=== PATIENT | female | born 1970 | race Caucasian/White ===

== ENCOUNTER 2019-09-16 00:36 | Inpatient (IN) | payer BC ==
[2019-09-15 23:55] VITALS: BP 134/81
[~2019-09-16] VITALS: Ht 157.5 cm; Wt 65.5 kg
[2019-09-16 00:23] VITALS: BP 134/81
[2019-09-16] MEDS: fentaNYL PF VIAL 100 MCG/2 ML VIAL IVP PRN ×3 (01:06→07:23)
[2019-09-16] MEDS: ONDANSETRON PF 4 MG/2 ML VIAL. IV PRN ×2 (01:06→07:25)
[2019-09-16] MEDS: IV NORMAL SALINE 1000ML BAG 1,000 ML IV SCH ×2 (01:07→11:00)
--- NOTE | 2019-09-16 01:15 | NUR ---
ADMIT NOTE: The patient, FEI REDDY, 49 y/o, F admitted by FELIBERTO LAMB MD, was given written information regarding hospital policies, unit procedures and contact persons. Patient arrived via gurney and escorted by EMS to unit. Patient afebrile, A&O, with moderate c/o pain upon admission. Patient orientated to room, admit packet reviewed and plan of care discussed, home medications and allergies verified and personal belongings left in room with patient. Patient in bed, call light within reach and no other needs voiced at this time.
[2019-09-16] MEDS ORDERED: DIPH25CA58 PO (02:35)
[2019-09-16 02:53] VITALS: BP 113/72
[2019-09-16] MEDS ORDERED: BUPIVACAINE-EPI 0.5%-1:200000 MPF 30 ML VIAL. ONE (07:28)
[2019-09-16] MEDS ORDERED: IV RINGERS,LACTATED 1000ML 1,000 ML IV SCH (07:32)
[2019-09-16 07:39] LABS: BASO % 0 % (0-3); EOS % 0 % (0-3); HEMATOCRIT 37.3 % (36.0-47.0); HEMOGLOBIN 12.4 g/dL (12.0-15.5); LYMPH # 0.6 x10^3/uL (1.0-4.8); LYMPH % 4 % (24-48); MEAN CORPUSCULAR HEMOGLOBIN 29 pg (25-35); MEAN CORPUSCULAR HGB CONC 33 g/dL (31-37); MEAN CORPUSCULAR VOLUME 88 fL (79-100); MONO # 1.1 x10^3/uL (0.0-1.1); MONO % 7 % (0-9); NEUT # 14.7 x10^3/uL (1.8-7.7); NEUT % 89 % (31-73); PLATELET COUNT 296 x10^3/uL (140-400); RED BLOOD COUNT 4.26 x10^6/uL (3.50-5.40); RED CELL DISTRIBUTION WIDTH 13.8 % (11.5-14.5); WHITE BLOOD COUNT 16.5 x10^3/uL (4.0-11.0)
[2019-09-16] MEDS ORDERED: SCOPOLAMINE 1.5MG PATCH. TD ONE ×2 (07:42→09:00)
[2019-09-16] MEDS ORDERED: PROCHLORPERAZINE 10 MG/2 ML VIAL. IV PRN (07:45)
[2019-09-16] MEDS ORDERED: HYDROmorphone 2 MG/ML VIAL IV PRN ×2 (07:45→10:15)
[2019-09-16] MEDS ORDERED: MORPHINE SULFATE 2 MG/ML VIAL. IV PRN (07:45)
[2019-09-16] MEDS ORDERED: fentaNYL PF VIAL 100 MCG/2 ML VIAL IV PRN ×2 (07:45)
[2019-09-16] MEDS ORDERED: ONDANSETRON PF 4 MG/2 ML VIAL. IV PRN (07:45)
[2019-09-16] MEDS ORDERED: SEVOFLURANE 61 TO 120 MINUTES. IH ONE ×2 (07:46→09:23)
[2019-09-16] MEDS ORDERED: ROCURONIUM 50 MG/5 ML VIAL. ONE (07:46)
[2019-09-16] MEDS ORDERED: PROPOFOL 20 ML IV ONE (07:47)
[2019-09-16] MEDS ORDERED: LIDOCAINE 2% PF 5 ML VIAL. ONE (07:47)
[2019-09-16] MEDS ORDERED: BACITRACIN 50,000 UNIT in IV NORMAL SALINE 1000ML BAG 1,000 ML IRR ONE (08:00)
--- NOTE | 2019-09-16 08:16 | PDOC2 ---
CONSULT Date of Consult Date of Consult DATE: 09/16/19 TIME: 08:10 Reason for Consult Reason for Consult: acute appendicitis Referring Physician Referring Physician: Dr Yousif Identification/Chief Complaint Chief Complaint RLQ pain Source Source: Chart review, Patient History of Present Illness Reason for Visit: Ms Bradshaw is a 49 yo female with acute onset of RLQ pain. Seen by her PCP, sent to the [facility] ED where a CT suggested an acute appendicitis. Past Medical History Cardiovascular: No pertinent hx Pulmonary: No pertinent hx Renal/: No pertinent hx Past Surgical History Past Surgical History: Hysterectomy Family History Family History: No Significant Social History No ALCOHOL: none Current Medications Current Medications Current Medications Sodium Chloride 1,000 ml @ 100 mls/hr Q10H IV Last administered on 09/16/19at 01:07; Start 09/16/19 at 01:00 Ondansetron HCl (Zofran) 4 mg PRN Q4HRS PRN IV NAUSEA/VOMITING Last administered on 09/16/19at 07:25; Start 09/16/19 at 01:00 Fentanyl Citrate (Fentanyl 2ml Vial) 50 mcg PRN Q3HRS PRN IVP PAIN Last administered on 09/16/19at 07:23; Start 09/16/19 at 01:00 Cefazolin Sodium/ Dextrose 50 ml @ 100 mls/hr 1X ONCE IV ; Start 09/16/19 at 08:00; Stop 09/16/19 at 08:29 Metronidazole 100 ml @ 100 mls/hr 1X ONCE IV ; Start 09/16/19 at 08:00; Stop 09/16/19 at 08:59 Bupivacaine HCl/ Epinephrine Bitart (Sensorcain-Epi 0.5%-1:080323 Mpf) 30 ml STK-MED ONCE .ROUTE ; Start 09/16/19 at 07:28; Stop 09/16/19 at 07:28; Status DC Ondansetron HCl (Zofran) 4 mg PRN Q6HRS PRN IV NAUSEA/VOMITING; Start 09/16/19 at 07:45; Stop 09/16/19 at 20:00 Fentanyl Citrate (Fentanyl 2ml Vial) 25 mcg PRN Q5MIN PRN IV MILD PAIN 1-3; Start 09/16/19 at 07:45; Stop 09/16/19 at 20:00 Fentanyl Citrate (Fentanyl 2ml Vial) 50 mcg PRN Q5MIN PRN IV MODERATE TO SEVERE PAIN; Start 09/16/19 at 07:45; Stop 09/16/19 at 20:00 Morphine Sulfate (Morphine Sulfate) 1 mg PRN Q10MIN PRN IV SEVERE PAIN 7-10; Start 09/16/19 at 07:45; Stop 09/16/19 at 20:00 Ringer's Solution 1,000 ml @ 30 mls/hr Q24H IV ; Start 09/16/19 at 07:32; Stop 09/16/19 at 19:31 Hydromorphone HCl (Dilaudid) 0.5 mg PRN Q10MIN PRN IV SEV PAIN, Second choice; Start 09/16/19 at 07:45; Stop 09/17/19 at 07:44 Prochlorperazine Edisylate (Compazine) 5 mg PACU PRN PRN IV NAUSEA, MRX1; Start 09/16/19 at 07:45; Stop 09/16/19 at 20:00 Scopolamine (Transderm-Scop) 1 patch STK-MED ONCE TD ; Start 09/16/19 at 07:42; Stop 09/16/19 at 07:42; Status DC Scopolamine (Transderm-Scop) 1 patch Q3DAYS TD Last administered on 09/16/19at 07:45; Start 09/16/19 at 09:00; Stop 09/16/19 at 07:48; Status DC Rocuronium [place] (Zemuron) 50 mg STK-MED ONCE .ROUTE ; Start 09/16/19 at 07:46; Stop 09/16/19 at 07:46; Status DC Sevoflurane (Ultane) 60 ml STK-MED ONCE IH ; Start 09/16/19 at 07:46; Stop 09/16/19 at 07:47; Status DC Propofol 20 ml @ As Directed STK-MED ONCE IV ; Start 09/16/19 at 07:47; Stop 09/16/19 at 07:47; Status DC Lidocaine HCl (Lidocaine Pf 2% Vial) 5 ml STK-MED ONCE .ROUTE ; Start 09/16/19 at 07:47; Stop 09/16/19 at 07:47; Status DC Scopolamine (Transderm-Scop) 1 patch 1X ONCE TD ; Start 09/16/19 at 09:00; Stop 09/16/19 at 09:01 Bacitracin 84445 unit/Sodium Chloride 1,000 ml @ 1,000 mls/hr 1X ONCE IRR ; Start 09/16/19 at 08:00; Stop 09/16/19 at 08:59 Active Scripts Active Reported Benadryl (Diphenhydramine Hcl) 25 Mg Capsule 1 Cap PO QHS 30 Days Allergies Allergies: Coded Allergies: No Known Allergies (Verified Allergy, Unknown, 09/16/19) ROS Gastrointestinal: Yes Nausea, Yes Abdominal Pain Physical Exam General: Alert, Oriented X3, No acute distress HEENT: Atraumatic Lungs: Normal air movement Heart: Regular rate Abdomen: Soft Vitals VITALS Vital Signs Date Time Temp Pulse Resp B/P (MAP) Pulse Ox O2 Delivery O2 Flow Rate FiO2 09/16/19 07:46 99.4 93 15 124/70 97 Room Air 99.4 Labs Labs Laboratory Tests Test 09/16/19 06:25 White Blood Count 16.5 x10^3/uL (4.0-11.0) Red Blood Count 4.26 x10^6/uL (3.50-5.40) Hemoglobin 12.4 g/dL (12.0-15.5) Hematocrit 37.3 % (36.0-47.0) Mean Corpuscular Volume 88 fL (79-100) Mean Corpuscular Hemoglobin 29 pg (25-35) Mean Corpuscular Hemoglobin Concent 33 g/dL (31-37) Red Cell Distribution Width 13.8 % (11.5-14.5) Platelet Count 296 x10^3/uL (140-400) Neutrophils (%) (Auto) 89 % (31-73) Lymphocytes (%) (Auto) 4 % (24-48) Monocytes (%) (Auto) 7 % (0-9) Eosinophils (%) (Auto) 0 % (0-3) Basophils (%) (Auto) 0 % (0-3) Neutrophils # (Auto) 14.7 x10^3/uL (1.8-7.7) Lymphocytes # (Auto) 0.6 x10^3/uL (1.0-4.8) Monocytes # (Auto) 1.1 x10^3/uL (0.0-1.1) Eosinophils # (Auto) 0.0 x10^3/uL (0.0-0.7) Basophils # (Auto) 0.0 x10^3/uL (0.0-0.2) Laboratory Tests Test 09/16/19 06:25 White Blood Count 16.5 x10^3/uL (4.0-11.0) Red Blood Count 4.26 x10^6/uL (3.50-5.40) Hemoglobin 12.4 g/dL (12.0-15.5) Hematocrit 37.3 % (36.0-47.0) Mean Corpuscular Volume 88 fL (79-100) Mean Corpuscular Hemoglobin 29 pg (25-35) Mean Corpuscular Hemoglobin Concent 33 g/dL (31-37) Red Cell Distribution Width 13.8 % (11.5-14.5) Platelet Count 296 x10^3/uL (140-400) Neutrophils (%) (Auto) 89 % (31-73) Lymphocytes (%) (Auto) 4 % (24-48) Monocytes (%) (Auto) 7 % (0-9) Eosinophils (%) (Auto) 0 % (0-3) Basophils (%) (Auto) 0 % (0-3) Neutrophils # (Auto) 14.7 x10^3/uL (1.8-7.7) Lymphocytes # (Auto) 0.6 x10^3/uL (1.0-4.8) Monocytes # (Auto) 1.1 x10^3/uL (0.0-1.1) Eosinophils # (Auto) 0.0 x10^3/uL (0.0-0.7) Basophils # (Auto) 0.0 x10^3/uL (0.0-0.2) Images Images CT scan done at [facility] ED is reviewed Assessment/Plan Assessment/Plan acute appendicitis explained risks of laprascopic appendectomy including but not limited to bleeding, infection, injury to surrounding structures, non acute appendix (i.e.m esenteric adenitis, gastroenteritis), she will proceed Thanks for consult GARTH PACHECO MD Sep 16, 2019 08:16
[2019-09-16 08:19] LABS: ALBUMIN 3.3 g/dL (3.4-5.0); ALBUMIN/GLOBULIN RATIO 0.9 (1.0-1.7); CALCIUM 8.6 mg/dL (8.5-10.1); CREATININE 0.7 mg/dL (0.6-1.0); GFR 88.2; POTASSIUM 3.2 mmol/L (3.5-5.1); TOTAL BILIRUBIN 0.5 mg/dL (0.2-1.0); TOTAL PROTEIN 6.8 g/dL (6.4-8.2)
[2019-09-16] MEDS ORDERED: SUCCINYLCHOLINE 200 MG/10 ML VIAL. ONE (08:24)
[2019-09-16] MEDS ORDERED: ONDANSETRON PF 4 MG/2 ML VIAL. ONE (08:48)
[2019-09-16] MEDS ORDERED: DEXAMETHASONE SOD PHOS 4 MG/ML VIAL ONE (08:48)
[2019-09-16] MEDS ORDERED: FAMOTIDINE 20 MG/2 ML VIAL ONE (08:48)
[2019-09-16] MEDS ORDERED: KETOROLAC 30 MG/ML VIAL. ONE (08:49)
[2019-09-16] MEDS ORDERED: NEOSTIGMINE METHYLSULFATE 5 MG/5 ML SYRINGE. ONE (08:49)
[2019-09-16] MEDS ORDERED: GLYCOPYRROLATE 1 MG/5 ML VIAL. ONE (08:49)
[2019-09-16] MEDS ORDERED: SCOPOLAMINE 1.5MG PATCH. TD SCH (09:00)
[2019-09-16] MEDS ORDERED: EPINEPHrine 1 MG/ML VIAL ONE (09:06)
[2019-09-16] MEDS ORDERED: BUPIVACAINE MPF 0.5% 30 ML VIAL. ONE (09:06)
--- NOTE | 2019-09-16 09:47 | NUR ---
SW following. Discussed with RN, pt from home, having an appy today. RN advised no SW needs at this time. SW will continue to follow.
[2019-09-16] MEDS ORDERED: fentaNYL PF VIAL 100 MCG/2 ML VIAL ONE (10:01)
[2019-09-16] MEDS ORDERED: IV NORMAL SALINE 1000ML BAG 1,000 ML IV SCH (10:01)
[2019-09-16] MEDS ORDERED: PROCHLORPERAZINE 10 MG/2 ML VIAL. ONE (10:01)
[2019-09-16] MEDS: POTASSIUM CL 20MEQ-0.45% NACL 1,000 ML IV SCH ×2 (10:01→15:48)
[2019-09-16] MEDS ORDERED: NALOXONE 0.4 MG/ML VIAL. IV PRN (10:15)
[2019-09-16] MEDS ORDERED: ceFAZolin SODIUM IV Push 1 GM VIAL. IVP SCH (10:15)
[2019-09-16] MEDS ORDERED: 0.9 % SODIUM CHLORIDE 10 ML DISP.SYRIN. IV PRN (10:15)
[2019-09-16] MEDS ORDERED: DEXTROSE 50% 25 GM / 50ML DISP.SYRIN. IV PRN (10:15)
[2019-09-16] MEDS ORDERED: ONDANSETRON PF 4 MG/2 ML VIAL. IVP PRN (10:15)
--- NOTE | 2019-09-16 10:24 | PDOC ---
BRIEF OPERATIVE NOTE Date: Sep 16, 2019 Pre-Op Diagnosis acute appendicitis Post-Op Diagnosis gangrenous appendicitis Procedure Performed l/s appendectomy Surgeon Angel Anesthesia Type: General, Regional (TAP) Blood Loss 10CC IV Fluid 600CC Urine Output 150CC Specimens Obtained appendix Findings gangrenous appendicitis Complications none Operative Note Wk # [id number] GARTH PACHECO MD Sep 16, 2019 10:24
[2019-09-16 11:00] VITALS: BP 101/66
--- NOTE | 2019-09-16 11:16 | OP ---
DATE OF SURGERY: 09/16/2019 PREOPERATIVE DIAGNOSIS: Acute appendicitis. POSTOPERATIVE DIAGNOSIS: Gangrenous appendicitis. PROCEDURE: Laparoscopic appendectomy. SURGEON: Chavo Pacheco MD ANESTHESIA: General endotracheal. ESTIMATED BLOOD LOSS: 10 mL. INTRAVENOUS FLUIDS: 600 mL. URINE OUTPUT: 150 mL. INDICATIONS: The patient is a 49-year-old with right lower quadrant pain and a CT suggesting appendicitis. She is brought for appendectomy. OPERATIVE FINDINGS: Uterus was surgically absent. The appendix was gangrenous. Right ovary appeared unremarkable. DESCRIPTION OF PROCEDURE: The patient brought to the operating suite, given a general endotracheal anesthetic. Chávez catheter placed to dependent drainage and the abdomen prepped and draped in usual sterile fashion. A supraumbilical incision was infiltrated with local anesthetic, incised and a 5 mm Visiport used to safely gain access into the abdominal cavity, taking care to avoid injury to abdominal contents. Pneumoperitoneum established. Camera inserted. Inspection carried out. Under direct vision, the suprapubic and left lower quadrant ports were placed and the supraumbilical port converted to 12 mm for instrumentation. Table placed in Trendelenburg rolled to the left and the base of the appendix was identified. A rent created between the appendix and the mesoappendix and the Endo-MARTHA tissue load was used to amputate the base of the appendix. We then set about taking down the mesoappendix using both vascular azam with the Endo-MARTHA and the LigaSure. The appendix was removed in its entirety, although the mid portion had ruptured, placed in an EndoCatch bag. Area was copiously irrigated, evacuated and checked for hemostasis. When present, a 19-Green[place]ic round [place] drain was brought through a stab wound, right upper quadrant and left in the pericolic gutter and pelvis. Appendix delivered through the supraumbilical incision, which was then closed with 0 Vicryl. At 6 cm intra-abdominal pressure, no bleeding from the umbilical closure or the left lower quadrant port site after its removal. Abdomen decompressed, suprapubic port removed. Skin incisions closed with subcuticular 4-0 Monocryl. Steri-Strips and sterile dressing applied. Chávez catheter removed. The patient awakened from her anesthetic and taken to the recovery room in satisfactory condition. CHAVO PACHECO MD DR: JAILENE/cody JOB#: [id number] / [id number] SABI Hurd MD, AHMED MD
[2019-09-16 11:27] LABS: % BANDS 14 % (0-9); % LYMPHS 5 % (24-48); % MONOS 7 % (0-10); % SEGS 74 % (35-66); PLT ESTIMATE ADEQUATE (ADEQUATE)
--- NOTE | 2019-09-16 11:30 | NUR ---
Pt returning from surgery. A&O X4, denies pain and nausea, IVF infusing, SCDS plugged in, lap sites X3 with telfa CDI, RANGEL RUQ with serosanguineous drainage, water pitcher filled, frequent VS started, call light within reach. Will continue to monitor.
[2019-09-16 15:00] VITALS: BP 113/69
[2019-09-16] MEDS ORDERED: cefTRIAXone IV Push 1 GM VIAL. IVP SCH (16:00)
[2019-09-16] MEDS ORDERED: ACETAMINOPHEN 325 MG TABLET. PO PRN (17:45)
[2019-09-16 19:00] VITALS: BP 108/70
[2019-09-16] MEDS: DOCUSATE SODIUM 100 MG CAPSULE. PO SCH (21:00)
[2019-09-16] MEDS: ENOXAPARIN 40 MG/0.4 ML SYRINGE. SQ SCH (22:08)
[2019-09-16] MEDS: oxyCODONE/APAP 5/325 1 TAB TABLET PO PRN (22:10)
[2019-09-16 23:07] VITALS: BP 100/50
[2019-09-17] MEDS: POTASSIUM CL 20MEQ-0.45% NACL 1,000 ML IV SCH ×3 (01:16→22:25)
[2019-09-17 03:06] VITALS: BP 91/47
[2019-09-17 07:00] VITALS: BP 94/56
--- NOTE | 2019-09-17 08:46 | NUR ---
SW following. Discussed with RN, pt had appy yesterday, now on 2 IV abx. RN advised no SW needs at this time. SW will continue to follow.
[2019-09-17] MEDS: DOCUSATE SODIUM 100 MG CAPSULE. PO SCH ×2 (09:00→21:01)
[2019-09-17] MEDS: oxyCODONE/APAP 5/325 1 TAB TABLET PO PRN ×4 (09:32→23:50)
--- NOTE | 2019-09-17 09:34 | HP ---
ADMIT DATE: 09/16/2019 HISTORY OF PRESENT ILLNESS: The patient is a 49-year-old female patient who presented to the Emergency Room of [facility] with complaints of abdominal pain. She was apparently seen at her primary care physician's for abdominal pain and was referred to the Emergency Room for further evaluation. She presented there complaining of pain in the right lower quadrant that started the day before yesterday and the pain has grown increasingly worse and resulted in her seeing her primary care physician. She denied any intake of bad food. Denied any travels. Denied any specific ill contacts. The patient had a normal stool over the last 24 hours. She localizes her pain mostly in the right lower quadrant. She described the pain as severe. Denied any dysuria, frequency or hematuria. Denied any history of stones and she was evaluated in the Emergency Room where she had had a CT scan of the abdomen and pelvis, which showed that the patient has finding consistent with acute appendicitis, no localized perforation or abscess at this time, status post hysterectomy and therefore, she was transferred to [facility] to consult the surgical team. PAST MEDICAL HISTORY: Unremarkable. PAST SURGICAL HISTORY: Significant for total abdominal hysterectomy. She had also had cervical conization before hysterectomy and also breast biopsy. ALLERGIES: She has no known drug allergies. MEDICATIONS: She is currently on no medication. FAMILY HISTORY: She has 1 older sister with cystic fibrosis, on a transplant list for lung transplant. She has 2 younger brothers that are seemingly healthy. Both parents are alive and healthy. SOCIAL HISTORY: She is , has a son and a daughter. She is an ex-smoker, quit 2 years ago. She drinks alcohol occasionally. She is a teacher. PHYSICAL EXAMINATION: GENERAL: On arrival to the Emergency Room, she looked well and was clearly in no apparent respiratory distress. No pallor, jaundice, cyanosis or thyromegaly. No jugular venous distention. No limb edema. VITAL SIGNS: Her heart rate was 86, blood pressure was 135/90, temperature was 98.1, respiratory rate was 16, and oxygen saturation was 100% on room air. HEAD, EYES, EARS, NOSE AND THROAT: Normocephalic, atraumatic. NECK: Supple. HEART: Showed normal first and second sounds. No gallop or murmur. CHEST: Clear to auscultation. No crepitation or rhonchi. ABDOMEN: Distended, soft with the pain mostly in the lower quadrant. She also complained of nausea, but no vomiting. NEUROLOGIC: She was grossly intact. The patient was given IV morphine as well as dose of ceftriaxone as well as Flagyl and was transferred to [facility] to consult the surgical team. LABORATORY DATA: Her lab work on arrival to the [facility] showed a white cell count of 16,500, hemoglobin 12.4, hematocrit 37.3, MCV 88 and platelet count 296,000 with a manual differential showed 89% polymorphs, 4% lymphocytes. Her chemistry showed a serum sodium 138, potassium 3.2, chloride 102, bicarbonate 24, anion gap of 12, BUN 7, creatinine 0.7, estimated GFR was 88 mL per minute. Her glucose 124. Lactic acid was 0.9, calcium was 8.6. Total bilirubin, AST, ALT, alkaline phosphatase were normal. Total protein was 6.8, albumin 3.3. ASSESSMENT AND PLAN: The patient was kept n.p.o., continued on IV antibiotic, IV fluid. Her potassium was low, so we replenished her potassium and we have consulted the surgical team for definitive surgical treatment. FELIBERTO LAMB MD DR: SANDIE/cody JOB#: [id number] / [id number]
[2019-09-17 09:57] LABS: HEMATOCRIT 34.5 % (36.0-47.0); HEMOGLOBIN 11.3 g/dL (12.0-15.5); RED BLOOD COUNT 3.86 x10^6/uL (3.50-5.40); RED CELL DISTRIBUTION WIDTH 14.6 % (11.5-14.5); WHITE BLOOD COUNT 17.2 x10^3/uL (4.0-11.0)
[2019-09-17 10:18] LABS: ALBUMIN/GLOBULIN RATIO 0.7 (1.0-1.7); CALCIUM 8.7 mg/dL (8.5-10.1); GFR 58.5; TOTAL BILIRUBIN 0.4 mg/dL (0.2-1.0); TOTAL PROTEIN 7.1 g/dL (6.4-8.2)
[2019-09-17] MEDS ORDERED: HYDROmorphone 2 MG/ML VIAL IV PRN (10:30)
--- NOTE | 2019-09-17 10:40 | PDOC ---
SILVANA ARREGUIN [employer] 09/17/19 1040: SURGICAL PROGRESS NOTE Subjective resting incisional pain no n/v Vital Signs Vital Signs Date Time Temp Pulse Resp B/P (MAP) Pulse Ox O2 Delivery O2 Flow Rate FiO2 09/17/19 10:35 98 Room Air 09/17/19 07:00 98.0 98 16 94/56 (69) 98.0 09/16/19 10:01 10 I&O Intake and Output 09/17/19 07:00 Intake Total 2950 ml Output Total 230 ml Balance 2720 ml IV Total 2950 ml Output Urine Total 150 ml Drainage Total 80 ml # Voids 5 General: Alert, Oriented X3, Cooperative Abdomen: Soft, Other (lap sites c/d/i, no erythema, drain purulent ) Labs Laboratory Tests Test 09/16/19 06:25 09/17/19 09:40 White Blood Count 16.5 x10^3/uL (4.0-11.0) 17.2 x10^3/uL (4.0-11.0) Red Blood Count 4.26 x10^6/uL (3.50-5.40) 3.86 x10^6/uL (3.50-5.40) Hemoglobin 12.4 g/dL (12.0-15.5) 11.3 g/dL (12.0-15.5) Hematocrit 37.3 % (36.0-47.0) 34.5 % (36.0-47.0) Mean Corpuscular Volume 88 fL (79-100) 89 fL (79-100) Mean Corpuscular Hemoglobin 29 pg (25-35) 29 pg (25-35) Mean Corpuscular Hemoglobin Concent 33 g/dL (31-37) 33 g/dL (31-37) Red Cell Distribution Width 13.8 % (11.5-14.5) 14.6 % (11.5-14.5) Platelet Count 296 x10^3/uL (140-400) 287 x10^3/uL (140-400) Neutrophils (%) (Auto) 89 % (31-73) Lymphocytes (%) (Auto) 4 % (24-48) Monocytes (%) (Auto) 7 % (0-9) Eosinophils (%) (Auto) 0 % (0-3) Basophils (%) (Auto) 0 % (0-3) Neutrophils # (Auto) 14.7 x10^3/uL (1.8-7.7) Lymphocytes # (Auto) 0.6 x10^3/uL (1.0-4.8) Monocytes # (Auto) 1.1 x10^3/uL (0.0-1.1) Eosinophils # (Auto) 0.0 x10^3/uL (0.0-0.7) Basophils # (Auto) 0.0 x10^3/uL (0.0-0.2) Segmented Neutrophils % 74 % (35-66) Band Neutrophils % 14 % (0-9) Lymphocytes % 5 % (24-48) Monocytes % 7 % (0-10) Platelet Estimate Adequate (ADEQUATE) Sodium Level 138 mmol/L (136-145) 142 mmol/L (136-145) Potassium Level 3.2 mmol/L (3.5-5.1) 4.0 mmol/L (3.5-5.1) Chloride Level 102 mmol/L (98-107) 104 mmol/L (98-107) Carbon Dioxide Level 24 mmol/L (21-32) 28 mmol/L (21-32) Anion Gap 12 (6-14) 10 (6-14) Blood Urea Nitrogen 7 mg/dL (7-20) 10 mg/dL (7-20) Creatinine 0.7 mg/dL (0.6-1.0) 1.0 mg/dL (0.6-1.0) Estimated GFR (Cockcroft-Gault) 88.2 58.5 BUN/Creatinine Ratio 10 (6-20) 10 (6-20) Glucose Level 124 mg/dL (70-99) 96 mg/dL (70-99) Lactic Acid Level 0.9 mmol/L (0.4-2.0) Calcium Level 8.6 mg/dL (8.5-10.1) 8.7 mg/dL (8.5-10.1) Total Bilirubin 0.5 mg/dL (0.2-1.0) 0.4 mg/dL (0.2-1.0) Aspartate Amino Transf (AST/SGOT) 17 U/L (15-37) 19 U/L (15-37) Alanine Aminotransferase (ALT/SGPT) 29 U/L (14-59) 26 U/L (14-59) Alkaline Phosphatase 63 U/L (46-116) 56 U/L (46-116) Total Protein 6.8 g/dL (6.4-8.2) 7.1 g/dL (6.4-8.2) Albumin 3.3 g/dL (3.4-5.0) 3.0 g/dL (3.4-5.0) Albumin/Globulin Ratio 0.9 (1.0-1.7) 0.7 (1.0-1.7) Laboratory Tests Test 09/17/19 09:40 White Blood Count 17.2 x10^3/uL (4.0-11.0) Red Blood Count 3.86 x10^6/uL (3.50-5.40) Hemoglobin 11.3 g/dL (12.0-15.5) Hematocrit 34.5 % (36.0-47.0) Mean Corpuscular Volume 89 fL (79-100) Mean Corpuscular Hemoglobin 29 pg (25-35) Mean Corpuscular Hemoglobin Concent 33 g/dL (31-37) Red Cell Distribution Width 14.6 % (11.5-14.5) Platelet Count 287 x10^3/uL (140-400) Sodium Level 142 mmol/L (136-145) Potassium Level 4.0 mmol/L (3.5-5.1) Chloride Level 104 mmol/L (98-107) Carbon Dioxide Level 28 mmol/L (21-32) Anion Gap 10 (6-14) Blood Urea Nitrogen 10 mg/dL (7-20) Creatinine 1.0 mg/dL (0.6-1.0) Estimated GFR (Cockcroft-Gault) 58.5 BUN/Creatinine Ratio 10 (6-20) Glucose Level 96 mg/dL (70-99) Calcium Level 8.7 mg/dL (8.5-10.1) Total Bilirubin 0.4 mg/dL (0.2-1.0) Aspartate Amino Transf (AST/SGOT) 19 U/L (15-37) Alanine Aminotransferase (ALT/SGPT) 26 U/L (14-59) Alkaline Phosphatase 56 U/L (46-116) Total Protein 7.1 g/dL (6.4-8.2) Albumin 3.0 g/dL (3.4-5.0) Albumin/Globulin Ratio 0.7 (1.0-1.7) Problem List s/p appy continue drain, abx GARTH PACHECO MD 09/17/19 1256: SURGICAL PROGRESS NOTE Assessment/Plan pt seen as above will ask ID to see SILVANA ARREGUIN APRN Sep 17, 2019 10:40 GARTH PACHECO MD Sep 17, 2019 12:56
--- NOTE | 2019-09-17 10:57 | PN ---
DATE: 09/17/2019 SUBJECTIVE: The patient is resting, slightly propped up in bed, in no apparent distress. She continued to have mild discomfort in her abdomen. Otherwise, she denies any other complaint. She is tolerating her diet. She has undergone laparoscopic appendectomy successfully yesterday. PHYSICAL EXAMINATION: GENERAL: When I saw her this morning, she looked well and was clearly in no apparent respiratory distress, pale, but no jaundice, cyanosis or thyromegaly. No jugular venous distention. No lower limb edema. VITAL SIGNS: Her heart rate was 98, blood pressure was 94/56, temperature was 98, respiratory rate was 16, and oxygen saturation was 98% on room air. HEAD, EYES, EARS, NOSE AND THROAT: Showed normocephalic, atraumatic. NECK: Supple. HEART: Showed normal first and second heart sounds. No gallop or murmur. CHEST: Clear to auscultation. No crepitation or rhonchi. ABDOMEN: Distended, soft with mild tenderness in the right upper quadrant. There is no guarding or rigidity. No organomegaly. All hernial orifice intact. Bowel sounds normal. NEUROLOGIC: She is awake, alert, responding appropriately. All cranial nerves are intact. She moves extremities without difficulty. LABORATORY DATA: No lab works were done this morning. I will repeat her lab work this morning and decide on further management accordingly. FELIBERTO LAMB MD DR: SANDIE/cody JOB#: [id number] / [id number]
[2019-09-17 11:00] VITALS: BP 90/59
[2019-09-17] MEDS ORDERED: PIP/TAZO PER PHARMACY MC PRN (13:00)
[2019-09-17] MEDS: PIPERACILLIN/TAZOBACTAM 3.375 GM in IV NORMAL SALINE 50ML 50 ML IV SCH ×3 (14:27→23:50)
[2019-09-17 15:00] VITALS: BP 119/72
--- NOTE | 2019-09-17 17:06 | PATHOLOGY ---
[facility] Accession Number: [id number] . 01 Material submitted: . appendix - APPENDIX . 01 Clinical history: . Acute appendicitis . 02 Diagnosis: Appendix, laparoscopic appendectomy: - Acute appendicitis, focally ruptured. (JPM:kellie; 09/17/2019) S 09/17/2019 1354 Local . 02 Comment: There is no evidence of malignancy. . 02 Electronically signed: . Bhanu Law MD, Pathologist NPI- [id number] . 01 Gross description: . The specimen is received in formalin, labeled "Garestrellitanda Augustine, appendix". Received is a vermiform appendix measuring 6.2 cm in length by up to 1.0 cm in diameter with a moderate amount of attached mesoappendix. The serosal surface is dusky pink-warren to warren-brown in appearance with a linear defect, consistent with perforation, measuring 0.8 cm, which is 2.0 cm from the surgical margin. The surrounding serosal surface is inked blue. The surgical margin is closed with a line of azam. The azam are removed the new margin is inked black. Sectioning reveals a patent to dilated lumen filled with fecal material. The specimen is submitted representatively in cassettes A1 through A3, with the proximal margin and bisected tip submitted in cassette A1, and the entire area of perforation submitted in cassette A2. (CAA; 09/16/2019) QAC/QAC 09/16/2019 1945 Local . 02 Pathologist provided ICD-10: K35.80 . 02 CPT . 418779 Specimen Comment: A courtesy copy of this report has been sent to [phone] Specimen Comment: Report sent to Performed at: [address] [place], [place] [id number] [facility] [address], [place], [place] [id number] MD Guero Belle MD Phone: [phone] Performed at: [address] [id number] MD Bhanu Law MD Phone: [phone]
[2019-09-17 19:00] VITALS: BP 111/67
[2019-09-17] MEDS: LACTOBACILLUS RHAMNOSUS GG 1 CAPSULE. PO SCH (21:01)
[2019-09-17] MEDS: ENOXAPARIN 40 MG/0.4 ML SYRINGE. SQ SCH (21:02)
[2019-09-17 23:00] VITALS: BP 99/66
[2019-09-18 03:52] VITALS: BP 95/61
[2019-09-18] MEDS: PIPERACILLIN/TAZOBACTAM 3.375 GM in IV NORMAL SALINE 50ML 50 ML IV SCH ×3 (06:10→17:30)
[2019-09-18] MEDS: LACTOBACILLUS RHAMNOSUS GG 1 CAPSULE. PO SCH ×2 (07:53→21:06)
[2019-09-18] MEDS: DOCUSATE SODIUM 100 MG CAPSULE. PO SCH ×2 (07:53→20:40)
[2019-09-18 07:59] VITALS: BP 116/70
--- NOTE | 2019-09-18 09:22 | PN ---
DATE: 09/18/2019 SUBJECTIVE: The patient is resting, slightly propped up in bed, in no apparent distress. She has not had any bowel movement, though she is passing some gas. PHYSICAL EXAMINATION: GENERAL: When I examined her, she looked pale, but no jaundice, cyanosis or thyromegaly. No jugular venous distention. No limb edema. VITAL SIGNS: Her heart rate was 76, blood pressure was 95/61, temperature was 98.5, respiratory rate was 18, and oxygen saturation was 95% on room air. HEAD, EYES, EARS, NOSE, AND THROAT: Showed she is normocephalic, atraumatic. ABDOMEN: Distended with a RANGEL drain in place. It is markedly tender. Her intake was 2950, output was 130. LABORATORY DATA: As of yesterday, her white cell count was 17,200, hemoglobin 11, hematocrit 34, MCV 89, and platelet count 207,000. Her chemistry as of yesterday showed a serum sodium 142, potassium 4, chloride 104, bicarbonate 28, anion gap of 10, BUN 10, creatinine 1, estimated GFR was 58 mL per minute. Her glucose was 96, calcium was 8.7. Total bilirubin, AST, ALT, and alkaline phosphatase were normal. Total protein 7.1, albumin 3. PLAN: Apparently, her ceftriaxone and metronidazole were discontinued. She is now on Zosyn 3.375 g IV every 6 hours. Continue with pain management. Continue with DVT prophylaxis. Apparently, she is on a clear liquid diet. FELIBERTO LAMB MD DR: SANDIE/cody JOB#: [id number] / [id number]
[2019-09-18 09:26] LABS: BASO % 0 % (0-3); EOS # 0.1 x10^3/uL (0.0-0.7); EOS % 1 % (0-3); HEMATOCRIT 30.3 % (36.0-47.0); HEMOGLOBIN 10.1 g/dL (12.0-15.5); LYMPH # 0.8 x10^3/uL (1.0-4.8); LYMPH % 6 % (24-48); MEAN CORPUSCULAR HEMOGLOBIN 30 pg (25-35); MEAN CORPUSCULAR HGB CONC 33 g/dL (31-37); MEAN CORPUSCULAR VOLUME 89 fL (79-100); MONO # 0.9 x10^3/uL (0.0-1.1); MONO % 7 % (0-9); NEUT # 11.1 x10^3/uL (1.8-7.7); NEUT % 86 % (31-73); PLATELET COUNT 274 x10^3/uL (140-400); RED BLOOD COUNT 3.41 x10^6/uL (3.50-5.40); RED CELL DISTRIBUTION WIDTH 14.6 % (11.5-14.5); WHITE BLOOD COUNT 12.9 x10^3/uL (4.0-11.0)
--- NOTE | 2019-09-18 11:03 | PDOC ---
SURGICAL PROGRESS NOTE Subjective RLQ pain tolerating diet Vital Signs Vital Signs Date Time Temp Pulse Resp B/P (MAP) Pulse Ox O2 Delivery O2 Flow Rate FiO2 09/18/19 07:59 98.6 81 20 116/70 (85) 99 Room Air 98.6 I&O Intake and Output 09/18/19 07:00 Intake Total 860 ml Output Total 140 ml Balance 720 ml Intake Oral 860 ml Drainage Total 140 ml # Voids 4 PATIENT HAS A BUTT: No General: Alert, No acute distress Abdomen: Other (TTP RLQ, RANGEL wilth serosanguineous output) Labs Laboratory Tests Test 09/17/19 09:40 09/18/19 08:45 White Blood Count 17.2 x10^3/uL (4.0-11.0) 12.9 x10^3/uL (4.0-11.0) Red Blood Count 3.86 x10^6/uL (3.50-5.40) 3.41 x10^6/uL (3.50-5.40) Hemoglobin 11.3 g/dL (12.0-15.5) 10.1 g/dL (12.0-15.5) Hematocrit 34.5 % (36.0-47.0) 30.3 % (36.0-47.0) Mean Corpuscular Volume 89 fL (79-100) 89 fL (79-100) Mean Corpuscular Hemoglobin 29 pg (25-35) 30 pg (25-35) Mean Corpuscular Hemoglobin Concent 33 g/dL (31-37) 33 g/dL (31-37) Red Cell Distribution Width 14.6 % (11.5-14.5) 14.6 % (11.5-14.5) Platelet Count 287 x10^3/uL (140-400) 274 x10^3/uL (140-400) Sodium Level 142 mmol/L (136-145) Potassium Level 4.0 mmol/L (3.5-5.1) Chloride Level 104 mmol/L (98-107) Carbon Dioxide Level 28 mmol/L (21-32) Anion Gap 10 (6-14) Blood Urea Nitrogen 10 mg/dL (7-20) Creatinine 1.0 mg/dL (0.6-1.0) Estimated GFR (Cockcroft-Gault) 58.5 BUN/Creatinine Ratio 10 (6-20) Glucose Level 96 mg/dL (70-99) Calcium Level 8.7 mg/dL (8.5-10.1) Total Bilirubin 0.4 mg/dL (0.2-1.0) Aspartate Amino Transf (AST/SGOT) 19 U/L (15-37) Alanine Aminotransferase (ALT/SGPT) 26 U/L (14-59) Alkaline Phosphatase 56 U/L (46-116) Total Protein 7.1 g/dL (6.4-8.2) Albumin 3.0 g/dL (3.4-5.0) Albumin/Globulin Ratio 0.7 (1.0-1.7) Neutrophils (%) (Auto) 86 % (31-73) Lymphocytes (%) (Auto) 6 % (24-48) Monocytes (%) (Auto) 7 % (0-9) Eosinophils (%) (Auto) 1 % (0-3) Basophils (%) (Auto) 0 % (0-3) Neutrophils # (Auto) 11.1 x10^3/uL (1.8-7.7) Lymphocytes # (Auto) 0.8 x10^3/uL (1.0-4.8) Monocytes # (Auto) 0.9 x10^3/uL (0.0-1.1) Eosinophils # (Auto) 0.1 x10^3/uL (0.0-0.7) Basophils # (Auto) 0.0 x10^3/uL (0.0-0.2) Laboratory Tests Test 09/18/19 08:45 White Blood Count 12.9 x10^3/uL (4.0-11.0) Red Blood Count 3.41 x10^6/uL (3.50-5.40) Hemoglobin 10.1 g/dL (12.0-15.5) Hematocrit 30.3 % (36.0-47.0) Mean Corpuscular Volume 89 fL (79-100) Mean Corpuscular Hemoglobin 30 pg (25-35) Mean Corpuscular Hemoglobin Concent 33 g/dL (31-37) Red Cell Distribution Width 14.6 % (11.5-14.5) Platelet Count 274 x10^3/uL (140-400) Neutrophils (%) (Auto) 86 % (31-73) Lymphocytes (%) (Auto) 6 % (24-48) Monocytes (%) (Auto) 7 % (0-9) Eosinophils (%) (Auto) 1 % (0-3) Basophils (%) (Auto) 0 % (0-3) Neutrophils # (Auto) 11.1 x10^3/uL (1.8-7.7) Lymphocytes # (Auto) 0.8 x10^3/uL (1.0-4.8) Monocytes # (Auto) 0.9 x10^3/uL (0.0-1.1) Eosinophils # (Auto) 0.1 x10^3/uL (0.0-0.7) Basophils # (Auto) 0.0 x10^3/uL (0.0-0.2) Assessment/Plan POD 2 l/s appendectomy for gangrenous appendicitis continue supportive care IV abx ID to see GARTH PACHECO MD Sep 18, 2019 11:03
--- NOTE | 2019-09-18 11:50 | PDOC ---
Infectious Disease Note Vital Sign Vital Signs Vital Signs Date Time Temp Pulse Resp B/P (MAP) Pulse Ox O2 Delivery O2 Flow Rate FiO2 09/18/19 07:59 98.6 81 20 116/70 (85) 99 Room Air 98.6 Labs Lab Laboratory Tests Test 09/18/19 08:45 White Blood Count 12.9 x10^3/uL (4.0-11.0) Red Blood Count 3.41 x10^6/uL (3.50-5.40) Hemoglobin 10.1 g/dL (12.0-15.5) Hematocrit 30.3 % (36.0-47.0) Mean Corpuscular Volume 89 fL (79-100) Mean Corpuscular Hemoglobin 30 pg (25-35) Mean Corpuscular Hemoglobin Concent 33 g/dL (31-37) Red Cell Distribution Width 14.6 % (11.5-14.5) Platelet Count 274 x10^3/uL (140-400) Neutrophils (%) (Auto) 86 % (31-73) Lymphocytes (%) (Auto) 6 % (24-48) Monocytes (%) (Auto) 7 % (0-9) Eosinophils (%) (Auto) 1 % (0-3) Basophils (%) (Auto) 0 % (0-3) Neutrophils # (Auto) 11.1 x10^3/uL (1.8-7.7) Lymphocytes # (Auto) 0.8 x10^3/uL (1.0-4.8) Monocytes # (Auto) 0.9 x10^3/uL (0.0-1.1) Eosinophils # (Auto) 0.1 x10^3/uL (0.0-0.7) Basophils # (Auto) 0.0 x10^3/uL (0.0-0.2) Objective Assessment Gangrenous appendicitis s/p lap appendectomy, 09/15 Leukocytosis Fever Abdominal/back pain Plan Plan of Care Continue Zosyn Probiotics Monitor WBC count/temp Monitor drain output I.S. f/u labs Pain management D/w nursing Thank you [id number] Tolerating soft diet. + Flatus Drain with serosanginous drainage and clear Cont Zosyn and change to po soon Attending Co-Sign Attending Co-Sign The patient was seen and interviewed as well as examined at the bedside. The chart was reviewed. The case was discussed. Agree with the plan of care. WILLIAM RAMIREZ APRN Sep 18, 2019 11:50 DISHA SOTO MD Sep 18, 2019 16:08
[2019-09-18 11:59] VITALS: BP 127/80
[2019-09-18] MEDS: oxyCODONE/APAP 5/325 1 TAB TABLET PO PRN ×3 (12:03→20:40)
--- NOTE | 2019-09-18 13:09 | CONS ---
DATE OF CONSULTATION: 09/18/2019 REQUESTING PHYSICIAN: Dr. Ortiz. REASON FOR CONSULTATION: Gangrenous appendix. HISTORY OF PRESENT ILLNESS: This patient is a 49-year-old female who presented to [facility] ER with worsening right lower quadrant abdominal pain, nausea, and fever. She says her back had been hurting for over a week prior to symptoms. A CT abdomen/pelvis with contrast showed findings consistent with acute appendicitis. No localized perforation or abscess seen. She was taken to the OR on the and underwent a laparoscopic appendectomy. The appendix was gangrenous and was removed in its entirety, although mid portion had ruptured. The area was copiously irrigated and a 19-Tog[place]ese round [place] drain was placed. Blood cultures are negative till date. She is currently on piperacillin/tazobactam. The patient says she is feeling a little bit better. She is still having some right lower quadrant and back pain, though not as intense. Nausea has improved. She is tolerating diet, though not eating very much. Her fevers have settled down. She is passing gas. No bowel movement yet. PAST MEDICAL HISTORY: No significant past medical history. PAST SURGICAL HISTORY: Laparoscopic appendectomy on 09/16/2019, total abdominal hysterectomy, breast biopsy. SOCIAL HISTORY: She is and lives at home. She is a former smoker. She drinks alcohol occasionally. She is a teacher. FAMILY HISTORY: Cystic fibrosis. ALLERGIES: No known drug allergies. MEDICATIONS: Piperacillin/tazobactam, probiotics, Colace, Lovenox, fentanyl, hydromorphone, naloxone, ondansetron, Percocet. Previously, on metronidazole and ceftriaxone. REVIEW OF SYSTEMS: Per HPI, otherwise all other review of systems are negative. PHYSICAL EXAMINATION: VITAL SIGNS: Temperature 98.6, blood pressure 116/70, heart rate 81, respiratory rate 20, pulse oximetry is 99% on room air. BMI 26. HEENT: Pupils equally round and reactive. Oropharynx pink, dry. No thrush. NECK: Supple. LUNGS: Clear to auscultation. HEART: S1, S2. ABDOMEN: Mildly distended, soft, tender with bowel sounds active. Right-sided drain in place with serosanguineous drainage. EXTREMITIES: No gross edema or cyanosis. SKIN: Warm to touch. No signs of rash. NEUROLOGIC: Alert and answering questions appropriately. LABORATORY DATA: Today's WBC 12.9 from 17.2, hemoglobin 10.1, platelets 274,000. Electrolytes are unremarkable. Creatinine 1.0, BUN 10, glucose 96, total bilirubin 0.4, AST 19, ALT 26, albumin 3.0. CT abdomen/pelvis per HPI. ASSESSMENT: 1. Gangrenous appendicitis, status post laparoscopic appendectomy on 09/16/2019. 2. Leukocytosis. 3. Fever. 4. Abdominal/back pain. PLAN: 1. Continue the Zosyn. 2. Monitor WBC count and temperature. 3. Monitor drain output. 4. Incentive spirometry. 5. Pain management per primary. 6. Discussed with nursing. Thank you, Dr. Ortiz, for asking us to participate in this patient's care. Should you have further questions or concerns, please call. DISHA SOTO MD DR: TESFAYE/cody JOB#: [id number] / [id number] gustavo Ortiz Dr.
[2019-09-18 15:59] VITALS: BP 132/82
[2019-09-18] MEDS: POTASSIUM CL 20MEQ-0.45% NACL 1,000 ML IV SCH ×2 (17:31→20:42)
[2019-09-18 19:00] VITALS: BP 121/79
[2019-09-18] MEDS: ENOXAPARIN 40 MG/0.4 ML SYRINGE. SQ SCH (20:41)
[2019-09-18 23:00] VITALS: BP 112/68
[2019-09-19] MEDS: oxyCODONE/APAP 5/325 1 TAB TABLET PO PRN ×5 (00:25→20:19)
[2019-09-19] MEDS: PIPERACILLIN/TAZOBACTAM 3.375 GM in IV NORMAL SALINE 50ML 50 ML IV SCH ×4 (00:26→17:45)
[2019-09-19] MEDS: CALCIUM CARBONATE 500 MG TAB.CHEW PO PRN ×2 (01:28→13:48)
[2019-09-19] MEDS: fentaNYL PF VIAL 100 MCG/2 ML VIAL IVP PRN (01:32)
[2019-09-19 05:18] LABS: HEMOGLOBIN 11.6 g/dL (12.0-15.5); RED BLOOD COUNT 3.93 x10^6/uL (3.50-5.40); WHITE BLOOD COUNT 12.4 x10^3/uL (4.0-11.0)
[2019-09-19 05:36] LABS: ALBUMIN 2.5 g/dL (3.4-5.0); ALBUMIN/GLOBULIN RATIO 0.6 (1.0-1.7); CREATININE 0.7 mg/dL (0.6-1.0); GFR 88.2; POTASSIUM 4.1 mmol/L (3.5-5.1); TOTAL BILIRUBIN 0.4 mg/dL (0.2-1.0); TOTAL PROTEIN 6.7 g/dL (6.4-8.2)
[2019-09-19 07:00] VITALS: BP 116/79
[2019-09-19] MEDS: LACTOBACILLUS RHAMNOSUS GG 1 CAPSULE. PO SCH ×2 (08:30→20:19)
[2019-09-19] MEDS: DOCUSATE SODIUM 100 MG CAPSULE. PO SCH ×2 (08:30→20:19)
--- NOTE | 2019-09-19 10:24 | PN ---
DATE: 09/19/2019 SUBJECTIVE: The patient is resting, slightly propped up in bed, in no apparent distress, awake, alert. On questioning her, she stated that she has passed gas last night and her abdominal distention and pain is much less. She is tolerating her diet, has been up and about; however, she has not had so far any bowel movement. PHYSICAL EXAMINATION: GENERAL: When I examined her, she looked well and was clearly in no apparent respiratory distress, slightly pale. No jaundice, cyanosis or thyromegaly. No jugular venous distention. No lower limb edema. VITAL SIGNS: Her heart rate was 87, blood pressure was 116/79, temperature was 98.5, respiratory rate 20 and oxygen saturation was 96% on room air. HEAD, EYES, EARS, NOSE AND THROAT: Showed normocephalic, atraumatic. NECK: Supple. HEART: Normal first and second heart sounds. No gallop, rub or murmur. CHEST: Clear to auscultation. No crepitation or rhonchi. ABDOMEN: Distended, soft, with tenderness mostly in the right lower quadrant; however, there is no guarding or rigidity, no organomegaly. All hernial orifices are intact. NEUROLOGICAL: She is awake, alert, responding appropriately. All cranial nerves are intact. She moves extremities without difficulty. Her intake over the last 24 hours was 860, no output was recorded. LABORATORY DATA: As of this morning, her white cell count was 12,400, hemoglobin 11.6, hematocrit 35, MCV 89 and platelet count 371,000. Her serum sodium was 138, potassium 4.1, chloride 101, bicarbonate 25, anion gap of 12, BUN 6, creatinine 0.7, estimated GFR was 88 mL per minute, her glucose 111, calcium was 9. Total bilirubin, AST, ALT, alkaline phosphatase were normal. Total protein was 6.7. Albumin was 2.5. ASSESSMENT: 1. Gangrenous appendicitis, status post laparoscopic appendectomy. 2. Leukocytosis. 3. Fever. 4. Abdominal and back pain. PLAN: To continue with IV Zosyn at 3.375 g IV every 6 hours. Continue with pain management. Continue with DVT prophylaxis. We will repeat all her lab works tomorrow and decide on further management accordingly. FELIBERTO LAMB MD DR: SANDIE/cody JOB#: [id number] / [id number]
[2019-09-19 11:00] VITALS: BP 116/77
--- NOTE | 2019-09-19 12:40 | PDOC ---
Provider Note Provider Note SURG POD 3 had some emesis earlier better now belly soft RANGEL output serosanguineous continue supportive care appreciate PCP/ID input GARTH PACHECO MD Sep 19, 2019 12:40
[2019-09-19 15:00] VITALS: BP 113/80
--- NOTE | 2019-09-19 15:59 | PDOC ---
Infectious Disease Note Subjective Subjective + BM this am but then vomited Does feel better today compared to yesterday Still some bloating No F/c/s/SOA/rash No appetite but taking in some po ROS ROS o/w neg Vital Sign Vital Signs Vital Signs Date Time Temp Pulse Resp B/P (MAP) Pulse Ox O2 Delivery O2 Flow Rate FiO2 09/19/19 15:08 16 Room Air 09/19/19 11:00 97.7 60 116/77 (90) 100 97.7 Physical Exam PHYSICAL EXAM CONT: Alert on in bed - looks comfortable HEENT: Pupils equally round and reactive. Oropharynx pink, dry. No thrush. NECK: Supple. LUNGS: Clear to auscultation. HEART: S1, S2. ABDOMEN: Mildly distended, soft, tender with bowel sounds active. Right-sided drain in place with serosanguineous drainage.- more serous today EXTREMITIES: No gross edema or cyanosis. SKIN: Warm to touch. No signs of rash. NEUROLOGIC: Alert and answering questions appropriately Labs Lab Laboratory Tests Test 09/19/19 04:55 White Blood Count 12.4 x10^3/uL (4.0-11.0) Red Blood Count 3.93 x10^6/uL (3.50-5.40) Hemoglobin 11.6 g/dL (12.0-15.5) Hematocrit 35.0 % (36.0-47.0) Mean Corpuscular Volume 89 fL (79-100) Mean Corpuscular Hemoglobin 30 pg (25-35) Mean Corpuscular Hemoglobin Concent 33 g/dL (31-37) Red Cell Distribution Width 14.0 % (11.5-14.5) Platelet Count 371 x10^3/uL (140-400) Sodium Level 138 mmol/L (136-145) Potassium Level 4.1 mmol/L (3.5-5.1) Chloride Level 101 mmol/L (98-107) Carbon Dioxide Level 25 mmol/L (21-32) Anion Gap 12 (6-14) Blood Urea Nitrogen 6 mg/dL (7-20) Creatinine 0.7 mg/dL (0.6-1.0) Estimated GFR (Cockcroft-Gault) 88.2 BUN/Creatinine Ratio 9 (6-20) Glucose Level 111 mg/dL (70-99) Calcium Level 9.0 mg/dL (8.5-10.1) Total Bilirubin 0.4 mg/dL (0.2-1.0) Aspartate Amino Transf (AST/SGOT) 16 U/L (15-37) Alanine Aminotransferase (ALT/SGPT) 24 U/L (14-59) Alkaline Phosphatase 71 U/L (46-116) Total Protein 6.7 g/dL (6.4-8.2) Albumin 2.5 g/dL (3.4-5.0) Albumin/Globulin Ratio 0.6 (1.0-1.7) Objective Assessment Gangrenous appendicitis s/p lap appendectomy, 09/15 N/V times one Leukocytosis - stable Fever - better Abdominal/back pain some better but still bloated Plan Plan of Care Continue Zosyn Probiotics Monitor WBC count/temp - stable but also more concentrated Monitor drain output I.S. f/u labs in am Pain management D/w nursing DISHA SOTO MD Sep 19, 2019 15:59
[2019-09-19 19:58] VITALS: BP 108/69
[2019-09-19] MEDS: POTASSIUM CL 20MEQ-0.45% NACL 1,000 ML IV SCH (20:17)
[2019-09-19] MEDS: ENOXAPARIN 40 MG/0.4 ML SYRINGE. SQ SCH (20:19)
[2019-09-19 23:58] VITALS: BP 135/82
[2019-09-20] MEDS: oxyCODONE/APAP 5/325 1 TAB TABLET PO PRN ×3 (00:08→10:36)
[2019-09-20] MEDS: PIPERACILLIN/TAZOBACTAM 3.375 GM in IV NORMAL SALINE 50ML 50 ML IV SCH ×2 (00:08→06:23)
[2019-09-20 03:13] VITALS: BP 106/70
[2019-09-20 04:40] LABS: HEMATOCRIT 32.3 % (36.0-47.0); HEMOGLOBIN 10.8 g/dL (12.0-15.5); RED BLOOD COUNT 3.64 x10^6/uL (3.50-5.40); RED CELL DISTRIBUTION WIDTH 14.2 % (11.5-14.5); WHITE BLOOD COUNT 11.4 x10^3/uL (4.0-11.0)
[2019-09-20 04:52] LABS: CALCIUM 8.6 mg/dL (8.5-10.1); CREATININE 0.8 mg/dL (0.6-1.0); GFR 75.6
[2019-09-20] MEDS: POTASSIUM CL 20MEQ-0.45% NACL 1,000 ML IV SCH (06:27)
[2019-09-20 07:00] VITALS: BP 101/64
[2019-09-20] MEDS: LACTOBACILLUS RHAMNOSUS GG 1 CAPSULE. PO SCH (08:36)
[2019-09-20] MEDS: DOCUSATE SODIUM 100 MG CAPSULE. PO SCH (08:37)
--- NOTE | 2019-09-20 08:50 | PDOC ---
SURGICAL PROGRESS NOTE Subjective feeling better no n/v today loose stools Vital Signs Vital Signs Date Time Temp Pulse Resp B/P (MAP) Pulse Ox O2 Delivery O2 Flow Rate FiO2 09/20/19 08:00 Room Air 09/20/19 06:27 20 93 09/20/19 03:13 99.0 85 106/70 (82) 99.0 09/20/19 01:08 10.0 I&O Intake and Output 09/20/19 07:00 Intake Total 400 ml Balance 400 ml Intake Oral 400 ml # Voids 2 # Bowel Movements 1 General: Alert, Oriented X3, Cooperative Abdomen: Soft, No tenderness, Other (drain serous) Labs Laboratory Tests Test 09/19/19 04:55 09/20/19 04:25 White Blood Count 12.4 x10^3/uL (4.0-11.0) 11.4 x10^3/uL (4.0-11.0) Red Blood Count 3.93 x10^6/uL (3.50-5.40) 3.64 x10^6/uL (3.50-5.40) Hemoglobin 11.6 g/dL (12.0-15.5) 10.8 g/dL (12.0-15.5) Hematocrit 35.0 % (36.0-47.0) 32.3 % (36.0-47.0) Mean Corpuscular Volume 89 fL (79-100) 89 fL (79-100) Mean Corpuscular Hemoglobin 30 pg (25-35) 30 pg (25-35) Mean Corpuscular Hemoglobin Concent 33 g/dL (31-37) 33 g/dL (31-37) Red Cell Distribution Width 14.0 % (11.5-14.5) 14.2 % (11.5-14.5) Platelet Count 371 x10^3/uL (140-400) 390 x10^3/uL (140-400) Sodium Level 138 mmol/L (136-145) 137 mmol/L (136-145) Potassium Level 4.1 mmol/L (3.5-5.1) 4.0 mmol/L (3.5-5.1) Chloride Level 101 mmol/L (98-107) 100 mmol/L (98-107) Carbon Dioxide Level 25 mmol/L (21-32) 25 mmol/L (21-32) Anion Gap 12 (6-14) 12 (6-14) Blood Urea Nitrogen 6 mg/dL (7-20) 5 mg/dL (7-20) Creatinine 0.7 mg/dL (0.6-1.0) 0.8 mg/dL (0.6-1.0) Estimated GFR (Cockcroft-Gault) 88.2 75.6 BUN/Creatinine Ratio 9 (6-20) Glucose Level 111 mg/dL (70-99) 88 mg/dL (70-99) Calcium Level 9.0 mg/dL (8.5-10.1) 8.6 mg/dL (8.5-10.1) Total Bilirubin 0.4 mg/dL (0.2-1.0) Aspartate Amino Transf (AST/SGOT) 16 U/L (15-37) Alanine Aminotransferase (ALT/SGPT) 24 U/L (14-59) Alkaline Phosphatase 71 U/L (46-116) Total Protein 6.7 g/dL (6.4-8.2) Albumin 2.5 g/dL (3.4-5.0) Albumin/Globulin Ratio 0.6 (1.0-1.7) Laboratory Tests Test 09/20/19 04:25 White Blood Count 11.4 x10^3/uL (4.0-11.0) Red Blood Count 3.64 x10^6/uL (3.50-5.40) Hemoglobin 10.8 g/dL (12.0-15.5) Hematocrit 32.3 % (36.0-47.0) Mean Corpuscular Volume 89 fL (79-100) Mean Corpuscular Hemoglobin 30 pg (25-35) Mean Corpuscular Hemoglobin Concent 33 g/dL (31-37) Red Cell Distribution Width 14.2 % (11.5-14.5) Platelet Count 390 x10^3/uL (140-400) Sodium Level 137 mmol/L (136-145) Potassium Level 4.0 mmol/L (3.5-5.1) Chloride Level 100 mmol/L (98-107) Carbon Dioxide Level 25 mmol/L (21-32) Anion Gap 12 (6-14) Blood Urea Nitrogen 5 mg/dL (7-20) Creatinine 0.8 mg/dL (0.6-1.0) Estimated GFR (Cockcroft-Gault) 75.6 Glucose Level 88 mg/dL (70-99) Calcium Level 8.6 mg/dL (8.5-10.1) Assessment/Plan s/p appy will await ID recs for abx if Dc --ok to dc SILVANA Merritt APRN Sep 20, 2019 08:50
[2019-09-20] MEDS ORDERED: OXYC1TAB15 PO (08:51)
--- NOTE | 2019-09-20 08:59 | PN ---
DATE: 09/20/2019 SUBJECTIVE: The patient is resting, slightly propped up in bed, in no apparent distress. She continues to have some discomfort in her right lower quadrant, but denied any nausea or vomiting. She passed gas, tolerating her diet without any problem. OBJECTIVE: GENERAL: When I examined her, she looked well and was clearly in no distress, pale. No jaundice, cyanosis or thyromegaly. No jugular venous distension. No lower limb edema. VITAL SIGNS: Her heart rate was 85, blood pressure was 106/70, temperature 99, respiratory rate was 18 and oxygen saturation was 93% on room air. HEAD, EYES, EARS, NOSE AND THROAT: Normocephalic, atraumatic. NECK: Supple. CARDIAC: Normal first and second heart sounds. No gallop, rub or murmur. CHEST: Clear to auscultation. No crepitation or rhonchi. ABDOMEN: Distended, with tenderness mostly in the right lower quadrant. There is no guarding or rigidity. No organomegaly. All hernial orifices are intact. Bowel sounds normal. NEUROLOGICAL: She is awake, alert, grossly intact. Her intake was more than 1000, no output was recorded. LABORATORY DATA: Her lab work as of this morning showed a white cell count of 11,400, hemoglobin 10.8, hematocrit 32, MCV 89 and platelet count 390,000. Her chemistry showed a serum sodium of 137, potassium 4, chloride 100, bicarbonate 25, anion gap 12, BUN 5, creatinine 0.8, estimated GFR was 76 mL per minute, her glucose was 88, calcium was 8.6. ASSESSMENT: Gangrenous appendicitis, status post laparoscopic appendectomy; leukocytosis; fever; abdominal and back pain. PLAN: To continue with IV Zosyn, continue with pain management, continue with DVT prophylaxis, await the Infectious Disease evaluation. FELIBERTO LAMB MD DR: SANDIE/cody JOB#: [id number] / [id number]
--- NOTE | 2019-09-20 09:04 | NUR ---
SW following. Discussed with RN, pt from home, possible discharge home today with self care. SW will continue to follow.
--- NOTE | 2019-09-20 10:54 | PDOC ---
Infectious Disease Note Subjective Subjective + BM. has had 3 Does feel better today compared to yesterday and had breakfast Still some bloating bu tless Pain 5 from 7 to 8 yesterday and mainly around drain No F/c/s/SOA/rash ROS ROS o/w neg Vital Sign Vital Signs Vital Signs Date Time Temp Pulse Resp B/P (MAP) Pulse Ox O2 Delivery O2 Flow Rate FiO2 09/20/19 10:36 Room Air 09/20/19 07:00 98.3 62 17 101/64 (76) 97 98.3 09/20/19 01:08 10.0 Physical Exam PHYSICAL EXAM CONT: Alert on in bed - looks comfortable. looks better HEENT: Pupils equally round and reactive. Oropharynx pink, dry. No thrush. NECK: Supple. LUNGS: Clear to auscultation. HEART: S1, S2. ABDOMEN: Mildly distended but less, soft, min tender on palapation. No guard or rebound. with bowel sounds active. Right-sided drain in place with serosanguineous drainage.- more serous today EXTREMITIES: No gross edema or cyanosis. SKIN: Warm to touch. No signs of rash. NEUROLOGIC: Alert and answering questions appropriately Labs Lab Laboratory Tests Test 09/20/19 04:25 White Blood Count 11.4 x10^3/uL (4.0-11.0) Red Blood Count 3.64 x10^6/uL (3.50-5.40) Hemoglobin 10.8 g/dL (12.0-15.5) Hematocrit 32.3 % (36.0-47.0) Mean Corpuscular Volume 89 fL (79-100) Mean Corpuscular Hemoglobin 30 pg (25-35) Mean Corpuscular Hemoglobin Concent 33 g/dL (31-37) Red Cell Distribution Width 14.2 % (11.5-14.5) Platelet Count 390 x10^3/uL (140-400) Sodium Level 137 mmol/L (136-145) Potassium Level 4.0 mmol/L (3.5-5.1) Chloride Level 100 mmol/L (98-107) Carbon Dioxide Level 25 mmol/L (21-32) Anion Gap 12 (6-14) Blood Urea Nitrogen 5 mg/dL (7-20) Creatinine 0.8 mg/dL (0.6-1.0) Estimated GFR (Cockcroft-Gault) 75.6 Glucose Level 88 mg/dL (70-99) Calcium Level 8.6 mg/dL (8.5-10.1) Objective Assessment Gangrenous appendicitis s/p lap appendectomy, 09/15 N/V times one 09/18 Leukocytosis - better Fever - better Abdominal/back pain- still bloated but less and overall better Plan Plan of Care Discontinue Zosyn augmentin and see tolerable if so would treat through 09/16 Probiotics Monitor drain output I.S. f/u labs in am Pain management D/w nursing DISHA SOTO MD Sep 20, 2019 10:54
[2019-09-20 11:00] VITALS: BP 116/71
[2019-09-20] MEDS ORDERED: AMOXICILLIN/K CLAV 875/125MG TABLET. PO SCH (12:00)
--- NOTE | 2019-09-20 16:45 | NUR ---
pt is discharged home with self care at 1543 via wheelchair via this RN. pt is in stable condition. pt has all belongings with her. pt received discharge instructions and prescriptions were called into pharmacy and she stated she had no further questions for me.
== END 2019-09-20 15:43 | disposition home or self-care (01) | DRG 343 ==
LOC: 4 NORTH 00:36
PROVIDERS: ADMIT Internal Medicine; ATTEND Internal Medicine
PROC: 0DTJ4ZZ Resection of Appendix, Percutaneous Endoscopic Approach (ICD-10-PCS; principal; 2019-09-16 08:00)
DX: K35.31 Acute appendicitis with localized peritonitis and gangrene, without perforation (principal); M54.9 Dorsalgia, unspecified; Z83.49 Family history of other endocrine, nutritional and metabolic diseases; Z87.891 Personal history of nicotine dependence; Z90.710 Acquired absence of both cervix and uterus
CPT/HCPCS: 36415; 80048; 80053; 83605; 85007; 85025; 85027; 88304; A7015; J0171; J0330; J0696; J1100; J1650; J1885; J2405; J2543; J2704; J2710; J3010; J3480; J3490; J7030; J7120; G0378

== ENCOUNTER → 2020-02-07 | Outpatient (CLI) | payer BC ==
[~2020-02-07] MED LIST: DIPH25CA58 PO; OXYC1TAB15 PO
== END | disposition home or self-care (01) ==
LOC: LAB 14:03
PROVIDERS: ATTEND Surgery
DX: Z01.818 Encounter for other preprocedural examination (principal); Z11.59 Encounter for screening for other viral diseases; K82.8 Other specified diseases of gallbladder
CPT/HCPCS: U0003-CS

== ENCOUNTER 2020-02-11 05:53 | Day surgery (SDC) | payer BC ==
[~2020-02-11] VITALS: Ht 165.1 cm; Wt 62.5 kg
[2020-02-11] MEDS ORDERED: ceFAZolin SODIUM IV Push 1 GM VIAL. IVP PRN (06:00)
[2020-02-11] MEDS ORDERED: ACETAMINOPHEN 500 MG TABLET PO ONE ×2 (06:03→07:00)
[2020-02-11] MEDS ORDERED: ACET325T9 PO (06:34)
[2020-02-11] MEDS ORDERED: IOHEXOL 300 MG/ML 50 ML VIAL. ONE (06:56)
[2020-02-11] MEDS ORDERED: SURGICEL HEMOSTAT 4X8 EACH. ONE (06:57)
[2020-02-11] MEDS ORDERED: BUPIVACAINE-EPI 0.25%-1:200000 MPF 30 ML VIAL. ONE (06:57)
[2020-02-11] MEDS ORDERED: MORPHINE SULFATE 2 MG/ML VIAL. IV PRN (07:00)
[2020-02-11] MEDS ORDERED: ONDANSETRON PF 4 MG/2 ML VIAL. IV PRN (07:00)
[2020-02-11] MEDS ORDERED: fentaNYL PF VIAL 100 MCG/2 ML VIAL IV PRN ×2 (07:00)
[2020-02-11] MEDS ORDERED: HYDROmorphone 2 MG/ML VIAL IV PRN (07:00)
[2020-02-11] MEDS ORDERED: LIDOCAINE 1% PF 2 ML VIAL. ID PRN (07:00)
[2020-02-11] MEDS ORDERED: IV RINGERS,LACTATED 1000ML 1,000 ML IV SCH (07:00)
[2020-02-11] MEDS ORDERED: SCOPOLAMINE 1.5MG PATCH. TD SCH ×2 (07:00→09:00)
[2020-02-11] MEDS ORDERED: PROCHLORPERAZINE 10 MG/2 ML VIAL. IV PRN (07:00)
[2020-02-11] MEDS ORDERED: LIDOCAINE 2% PF 5 ML VIAL. ONE (07:04)
[2020-02-11] MEDS ORDERED: ONDANSETRON PF 4 MG/2 ML VIAL. ONE (07:04)
[2020-02-11] MEDS ORDERED: PROPOFOL 10 MG/ML (20ML) VIAL. IV ONE (07:04)
[2020-02-11] MEDS ORDERED: DEXAMETHASONE SOD PHOS 4 MG/ML VIAL ONE (07:04)
[2020-02-11] MEDS ORDERED: ROCURONIUM 50 MG/5 ML VIAL. ONE (07:05)
[2020-02-11] MEDS ORDERED: fentaNYL PF VIAL 100 MCG/2 ML VIAL ONE ×3 (07:08→08:00)
[2020-02-11] MEDS ORDERED: MIDAZOLAM HCL/PF 2 MG/2 ML VIAL. ONE (07:08)
[2020-02-11] MEDS ORDERED: SUCCINYLCHOLINE 200 MG/10 ML VIAL. ONE (07:09)
[2020-02-11] MEDS ORDERED: GLYCOPYRROLATE 1 MG/5 ML VIAL. ONE (07:35)
[2020-02-11] MEDS ORDERED: NEOSTIGMINE METHYLSULFATE 5 MG/5 ML SYRINGE. ONE (07:35)
[2020-02-11] MEDS ORDERED: KETOROLAC 30 MG/ML VIAL. ONE (07:45)
[2020-02-11] MEDS ORDERED: PROCHLORPERAZINE 10 MG/2 ML VIAL. ONE (08:00)
--- NOTE | 2020-02-11 08:02 | PDOC4 ---
Operative Note Operative Note Date: February 11, 2020 at 8 AM Preoperative diagnosis: Biliary dyskinesia Postoperative diagnosis: Same Procedure: Laparoscopic cholecystectomy Surgeon: Markus Specimen: Gallbladder Dictation: Patient is a 50-year-old female has had a HIDA scan which showed abnormal ejection fraction under 15%. Procedure of laparoscopic cholecystectomy was explained to the patient detail risk-benefit were also discussed including bleeding infection injury to intra-abdominal contents possibly necessitating further or open operations alternatives to this procedure also discussed with the patient who seemed to understand and gave both verbal and written consent to have the procedure performed. Patient was taken to the operating room placed in the supine position general anesthesia was initiated once patient was sleeping intubated her abdomen was prepped and draped usual sterile fashion using ChloraPrep. An area just below the umbilicus was injected with quarter percent Marcaine with epinephrine incision was made 11 blade scalpel and a varies needle was placed within the abdomen creating pneumoperitoneum once this was complete 11 mm port was placed and a 5 mm camera was placed within the abdomen was noted that she had quite a few adhesions around the umbilicus so a 5 mm Visiport was placed under direct visualization in the left upper quadrant and the camera was placed within this 5 mm port looking back at the umbilical port site there were some adhesions a 5 mm port was placed in the right midabdomen and one in the right lateral abdomen using Endo Kiley scissors the adhesions were taken down e xposing the umbilical port. The camera was then moved to the umbilical port the gallbladder was visualized the dome of the gallbladder is grasped retracted cephalad the infundibulum gallbladder is grasped tract and laterally is quite a few adhesions to the gallbladder these were taken down with blunt dissection. The cystic duct and cystic artery were visualized both were doubly clipped and transected the gallbladder is taken off the liver with hook electrocautery placed in Endo Catch bag removed and the umbilicus right upper quadrant was irrigated and suctioned dry hemostasis deemed appropriate the pneumoperitoneum was reduced all ports were removed the fascial defect at the umbilicus was closed with a [id number] Vicryl suture and the skin was reapproximated all port sites for subcuticular Monocryl Mastisol Steri-Strips and island dressings were applied. Patient was awakened and extubated in the operating room taken to recovery in stable condition all sponge instrument needle counts listed as correct estimated blood loss 10 mL. DAMEON PARK MD Feb 11, 2020 08:02
--- NOTE | 2020-02-11 08:04 | DISCH ---
DISCHARGE INSTRUCTIONS Condition on Discharge Condition on Discharge: Stable Activity After Discharge Activity Instructions for Disc: Avoid exertion Other activity instructions: No lifting more than 20 pounds for 2 weeks Lifting Instructions after Dis: No heavy lifting, No pulling or pushing Driving Instructions after Dis: Do not drive today Diet after Discharge Diet after Discharge: Low Fat Wound Incision Care Other wound/incision instructi: May shower in 24 hours Contacting the DRKeyla after DC Call your doctor for: If your condition worsens Follow-Up Follow up with: Dr. Park in 2 weeks DAMEON PARK MD Feb 11, 2020 08:04
[2020-02-11] MEDS ORDERED: OXYC-325 PO (08:53)
[2020-02-11] MEDS ORDERED: oxyCODONE/APAP 5/325 1 TAB TABLET ONE (09:09)
[2020-02-11 09:10] VITALS: BP 124/82
[2020-02-11] MEDS ORDERED: oxyCODONE/APAP 5/325 1 TAB TABLET PO ONE (09:15)
--- NOTE | 2020-02-14 19:07 | PATHOLOGY ---
[facility] Accession Number: [id number] . 01 Material submitted: . gallbladder - GALLBLADDER AND CONTENTS . 01 Clinical history: . Biliary dyskinesia . 02 Diagnosis: Gallbladder, cholecystectomy: - Chronic cholecystitis, mild. (JPM:freight coordinator; 02/14/2020) MBR 02/14/2020 1544 Local . 02 Comment: There are no calculi present within the gallbladder lumen or specimen container. Sections of the gallbladder show mild chronic inflammation. There is no evidence of malignancy. (JPM:freight coordinator; 02/14/2020) . 02 Electronically signed: . Bhanu Law MD, Pathologist NPI- [id number] . 01 Gross description: . The specimen is received in formalin, labeled "Rosetta Bradshaw, gallbladder and contents". Received is an intact gallbladder measuring 6.1 x 2.7 x 2.4 cm in greatest dimensions displaying a pink-warren to blue-warren serosal surface. Opening the specimen reveals a velvety, bile-stained mucosa with a gallbladder wall thickness of 0.1 cm. Calculi are not present, and no masses or lesions are noted grossly. Sales And Service Change Leader sections, to include the proximal margin, are submitted in cassette A1. (CAA; 02/11/2020) QAC/QAC 02/11/2020 1645 Local . 02 Pathologist provided ICD-10: K81.1 . 02 CPT . 357277 Specimen Comment: A courtesy copy of this report has been sent to [phone], [phone] Specimen Comment: [id number] Specimen Comment: Report sent to / DR WASHBURN Performed at: 01 [facility] [address] [place] [address] [address], [place] [id number] MD Guero Belle MD Phone: [phone] Performed at: [address] [id number] MD Bhanu Law MD Phone: [phone]
== END 2020-02-11 09:50 | disposition home or self-care (01) ==
LOC: SURG 05:53
PROVIDERS: ATTEND Surgery
DX: K82.8 Other specified diseases of gallbladder (principal); K80.10 Calculus of gallbladder with chronic cholecystitis without obstruction; E66.9 Obesity, unspecified; Z68.23 Body mass index [BMI] 23.0-23.9, adult; Z79.899 Other long term (current) drug therapy; Z90.49 Acquired absence of other specified parts of digestive tract; Z90.710 Acquired absence of both cervix and uterus; Z98.890 Other specified postprocedural states
CPT/HCPCS: 47562; 88304; A7015; J0330; J0690; J1100; J1885; J2250; J2405; J2704; J2710; J3010; J3490; J7030; J0780; Q9967